=== PATIENT | female | born 1940 | race Caucasian/White ===

== ENCOUNTER 2017-10-24 09:40 | Emergency (ER) | payer MEDICARE ==
[~2017-10-24] VITALS: Ht 154.9 cm; Wt 72.1 kg
--- OUTSIDE RECORDS SUMMARY | 2017-10-24 09:42 | XMS REPORT | Clinical Summary ---
Author Author AIDE [facility] Address Unknown Phone Unavailable Care Team Providers Care Tailer Out Name Role Phone PCP Unavailable Allergies No Known Allergies Current Medications Prescription Sig. Disp. Refills Start End Date Status Date esomeprazole (NEXIUM) 40 Take 40 mg by mouth Active MG capsule daily. fenofibrate (TRICOR) 145 Take 145 mg by mouth Active MG tablet daily. lovastatin (MEVACOR) 40 Take 40 mg by mouth Active MG tablet nightly. verapamil (VERELAN PM) Take 240 mg by mouth Active 240 MG 24 hr capsule nightly. metoprolol (TOPROL-XL) 25 Take 25 mg by mouth Active MG 24 hr tablet daily. dronedarone (MULTAQ) 400 Take 400 mg by mouth 2 Active mg tablet (two) times daily with breakfast and dinner. apixaban (ELIQUIS) 5 mg Take 5 mg by mouth 2 Active Tab tablet (two) times daily. promethazine (PHENERGAN) Take 25 mg by mouth every Active 25 MG tablet 6 (six) hours as needed for Nausea. hyoscyamine Take 0.125 mg by mouth Active (ANASPAZ,LEVSIN) 0.125 mg every 4 (four) hours as tablet needed for Cramping. anastrozole (ARIMIDEX) 1 Take 1 mg by mouth daily. Active mg tablet Active Problems Not on file Social History Tobacco Use Types Packs/Day Years Used Date Never Smoker Alcohol Use Drinks/Week oz/Week Comments No Sex Assigned at Date Recorded Not on file Last Filed Vital Signs Not on file Plan of Treatment Not on file Results Not on fileafter 10/23/2016
--- OUTSIDE RECORDS SUMMARY | 2017-10-24 09:42 | XMS REPORT | Clinical Summary ---
Author Author [facility] Address Unknown Phone Unavailable Care Team Providers Care Emergency Communications Officer Name Role Phone Onur Houston MD PCP Allergies Active Allergy Reactions Severity Noted Date Comments No Known Drug Allergies 03/10/2016 Current Medications Prescription Sig. Disp. Refills Start End Date Status Date apixaban (ELIQUIS) 5 mg Take 5 mg by mouth. Active tablet verapamil extended Take 240 mg by mouth. Active release (VERELAN) 240 MG 24 hr capsule metoprolol succinate XL Take 25 mg by mouth. Active (TOPROL-XL) 25 MG 24 hr tablet JARDIANCE 10 mg tablet 3 01/27/20 Active 16 NEXIUM 40 mg capsule 9 01/26/20 Active 16 ZETIA 10 mg tablet 3 01/26/20 Active 16 anastrozole (ARIMIDEX) 1 2 12/12/19 Active mg chemo tablet 16 diazepam (VALIUM) 5 MG 1 01/15/20 Active tablet 16 lovastatin (MEVACOR) 40 05/30/20 Active MG tablet 16 Active Problems Problem Noted Date Lumbar stenosis 07/21/2016 Spondylolisthesis of lumbar region 07/21/2016 DDD (degenerative disc disease), lumbar 07/16/2016 Primary osteoarthritis of both hips 07/16/2016 Primary osteoarthritis of left hip 06/05/2016 Hip pain, acute 05/21/2016 Family History Medical History Relation Name Comments Heart disease Mother Relation Name Status Comments Mother Social History Tobacco Use Types Packs/Day Years Used Date Never Smoker Sex Assigned at Date Recorded Not on file Last Filed Vital Signs Not on file Plan of Treatment Health Maintenance Due Date Last Done Comments SHINGRIX VACCINE (#1) 1991 ZOSTER VACCINE 2001 PNEUMOCOCCAL 2006 POLYSACCHARIDE VACCINE AGE 65 AND OVER PNEUMOCOCCAL-13 2006 INFLUENZA VACCINE 01/06/2018 Results Not on fileafter 10/23/2016 Insurance Payer Benefit Subscriber ID Type Phone Address Plan / Group MEDICARE MEDICARE xxxxxxxxxx Medicare [place], [place] PART A AND B AARP AARP xxxxxxxxx [place] [address]
--- NOTE | 2017-10-24 11:41 | Diagnostic Imaging Report ---
EXAMINATION: Left Hip Films CLINICAL HISTORY:Left leg and hip pain, status post fall 4 days ago COMPARISON: None. DISCUSSION: The bones are well-mineralized. No acute, displaced fractures or dislocations. Mild degenerative changes in bilateral joints. No gross soft tissue abnormalities. No osteolytic or osteoblastic lesions. Soft tissues are unremarkable. The bowel gas pattern. IMPRESSION: 1. No acute, displaced fracture or dislocation. Correlate clinically for need for further imaging. Signed by: Dr. Leo Espitia M.D. on 10/24/2017 11:37 AM
[2017-10-24] MEDS ORDERED: TRAMADOL HCL 50 MG TAB PO NR (12:00)
[2017-10-24] MEDS ORDERED: HYDROMORPHONE 1MG/1ML INJ IM STA (12:25)
[2017-10-24] MEDS ORDERED: ONDANSETRON HCL 4 MG ORAL DISINTEGRATING TAB PO ONE (12:30)
== END 2017-10-24 12:53 | disposition home or self-care (01) ==
LOC: ER 09:40
DX: M79.652 Pain in left thigh (principal); M54.16 Radiculopathy, lumbar region; I10 Essential (primary) hypertension; E11.9 Type 2 diabetes mellitus without complications; Z85.3 Personal history of malignant neoplasm of breast; Z90.12 Acquired absence of left breast and nipple
CPT/HCPCS: 99283